=== PATIENT | female | born 1990 | race Caucasian/White ===

== ENCOUNTER 2024-07-12 09:18 | Observation (INO) | payer SELFPAY ==
[~2024-07-12] VITALS: Ht 172.7 cm; Wt 74.8 kg
--- NOTE | 2024-07-12 09:23 | NUR ---
PT TO ROOM WITH STEADY GAIT
[2024-07-12 09:26] VITALS: BP 123/92
[2024-07-12] MEDS ORDERED: ONDANSETRON HCl 4 MG/2 ML SDV IV ONE (09:30)
[2024-07-12] MEDS ORDERED: KETOROLAC TROMETHAMINE 15 MG/ML SDV IV ONE (09:30)
[2024-07-12] MEDS ORDERED: SODIUM CHLORIDE 0.9% 1,000 ML IV ONE (09:30)
[2024-07-12 09:45] LABS: URINE BILIRUBIN - DIPSTICK Negative (NEGATIVE); URINE BLOOD DIPSTICK Trace-intact (NEGATIVE); URINE GLUCOSE - DIPSTICK Negative (NEGATIVE); URINE KETONE Negative (NEGATIVE); URINE NITRITE - DIPSTICK Negative (Negative); URINE PH 5.5 (4.5-8.0); URINE PROTEIN - DIPSTICK Negative (NEG-TRACE); URINE SPECIFIC GRAVITY 1.025; URINE UROBILINOGEN - DIPSTICK 0.2 E.U./dL (0.2)
[2024-07-12 09:52] LABS: BASO% 0.5 % (0-3); EOS% 2.8 % (0-8); HEMATOCRIT 36.8 % (37.0-47.0); HEMOGLOBIN 11.6 g/dl (12.0-16.0); IMMATURE GRANULOCYTES 0.4 % (0.0-5.0); LYMPH% 46.6 % (15-41); MEAN CELL VOLUME 91.8 fL CALC (80.0-100.0); MEAN CORPUSCULAR HGB 28.9 pG CALC (26.0-32.0); MEAN CORPUSCULAR HGB CONC 31.5 g/dL CAL (32.0-36.0); MONO% 8.9 % (2-13); NEUT# 3.05 thou/uL (2.00-7.15); NEUT% 40.8 % (42-76); RED BLOOD COUNT 4.01 mill/uL (4.20-5.60); RED CELL DISTRI WIDTH 13.4 % (11.5-15.5)
[2024-07-12 10:08] LABS: ALBUMIN 4.9 g/dL (3.2-5.0); BILIRUBIN, TOTAL 0.4 mg/dL (0.02-1.3); CREATININE 0.7 mg/dL (0.5-1.0); POTASSIUM 3.7 mmol/l (3.5-5.1); TOTAL PROTEIN 8.4 g/dL (6.3-8.2)
[2024-07-12 10:30] LABS: URINE COLOR Yellow; URINE LEUK ESTERASE Small (NEGATIVE)
--- NOTE | 2024-07-12 10:30 | NUR ---
PATIENT AWAKE, ALERT AND STABLE. NO DISRESS NOTED. PATIENT C/O PAIN IN ABDOMEN. WILL CONTINUE TO MONITOR.
[2024-07-12 10:35] LABS: URINE RBC 0-2 RBC/hpf (0-5)
[2024-07-12 10:36] LABS: URINE BACTERIA FEW hpf; URINE EPITHELIAL CELLS MANY EPI/hpf (0-FEW); URINE MUCUS MODERATE hpf (NONE-FEW)
[2024-07-12] MEDS ORDERED: HYDROmorphone HCL 2 MG/AMP IV ONE (10:45)
[2024-07-12] MEDS ORDERED: Pantoprazole Sodium 40 MG VIAL (Protonix) IV ONE ×2 (10:45→11:45)
--- NOTE | 2024-07-12 11:15 | NUR ---
PATIENT AWAKE, ALERT AND STABLE. NO DISTRESS NOTED. PATIENT IN BED ON PHONE AT THIS TIME. PATIENT HAS NO QUESTIONS OR CONCERNS. VITALS WNL. WILL CONTINUE TO MONITOR.
[2024-07-12] MEDS ORDERED: cefTRIAXone SODIUM 2 GM in SODIUM CHLORIDE 0.9% 100 ML IV ONE (11:50)
[2024-07-12] MEDS ORDERED: SODIUM CHLORIDE 0.9% 1,000 ML IV PRN (12:10)
[2024-07-12] MEDS ORDERED: ALPRAZolam 1 MG/TAB PO PRN (12:10)
[2024-07-12] MEDS ORDERED: HYDROmorphone HCL 2 MG/AMP IV PRN (12:10)
[2024-07-12] MEDS ORDERED: ONDANSETRON HCl 4 MG/2 ML SDV IV PRN (12:15)
[2024-07-12] MEDS ORDERED: DiphenhydrAMINE HCL 50 MG/ML SDV IV PRN (12:15)
[2024-07-12] MEDS ORDERED: SOTALOL AF80 MG PO (12:33)
[2024-07-12] MEDS ORDERED: XANAX1 MG PO (12:33)
--- NOTE | 2024-07-12 13:00 | NUR ---
PATIENT AWAKE, ALERT AND STABLE. NO DISTRESS NOTED. VITALS WNL. PATIENT AWARE THAT SHE IS BEING ADMITTED TO HOSPITAL. WILL CONTINUE TO MONITOR.
--- NOTE | 2024-07-12 13:58 | NUR ---
PATIENT ARRIVED TO [place] FROM THE ED TO ROOM 278. PATIENT A&OX3. BREATHING UNLABORED ON ROOM AIR. IV IN LAC INFUSING FLUIDS PER EMAR;SITE CLEAN AND INTACT. PT STATES TO HAVE SOME PAIN IN LEFT FLANK AREA;MEDICATION REVIEWED. ASSESSMENT COMPLETED. PT DENIES ANY N/D/V AT THIS TIME. PERSONAL BELONGINGS PUT AWAY. PT EDUCATED ON SAFTEY PRECAUTIONS AND CALL LIGHT USE;PT VERBALIZED UNDERSTANDING. BED IN LOWEST POSITION. CALL LIGHT WITHIN REACH. NO OTHER NEEDS AT THIS TIME. POC ONGOING .
--- NOTE | 2024-07-12 14:35 | NUR ---
Admission Note Report Given to: Transported by: X Wheelchair Stretcher Transported with: X Nurse Transporter X Patent IV O2 X Breaker Boss Location: ICU X [facility]
[2024-07-12 14:48] VITALS: BP 123/92
[2024-07-12] MEDS ORDERED: DiphenhydrAMINE HCL 25 MG CPLT PO PRN (16:30)
--- NOTE | 2024-07-12 16:40 | NUR ---
PATIENT LYING IN BED ON CELLPHONE. BREATHING UNLABORED ON ROOM AIR. TELE INTACT. IV IN LAC INFUSING FLUIDS PER EMAR; SITE CLEAN AND INTACT. PT STATES TO HAVE SOME VAGINAL ITCHING;MD NOTIFED AND AWARE WITH NEW ORDERD GIVEN.PT INFORMED OF CLEAR LIQUID DIET UNTIL MIDNIGHT AND THEN NPO AFTER. PT VERBALIZED UNDERSTANDING. NO OTHER NEEDS AT THIS TIME. BED IN LOWEST POSITION. CALL LIGHT WITHIN REACH. POC ONGOING.
--- NOTE | 2024-07-12 18:20 | NUR ---
INFORMED THAT PATIENT IS COMPLAINING ABOUT ITCHING IN VAGINAL AREA;A NEW ORDER WAS GIVEN. DURING ADMINISTRATION OF MEDICATION,PT REFUSED DUE TO IT BEING IN PO FORM AND NOT IV. PT STATED SHE WANTED SOMETHING FOR PAIN. INFORMED PT HER DILAUDID WAS DISCONTINUED;PT INSISTED ON KNOWING WHY AND STATED " IM NOT GOING TO STAY IF I DONT HAVE ANYTHING FOR PAIN, THAT WAS THE WHOLE POINT OF ME EVEN STAYING AND HE SAID HE WOULD GIVE ME SOMETHING FOR PAIN THROUGHTOUT THE NIGHT". NOTIFIED AND AWARE AND STATED NO NEW PAIN MED ORDERS WILL BE GIVEN AND THE PATIENT CAN LEAVE AMA IF SHE CHOOSES. PT DECIDED TO LEAVE AMA AND REMOVED IV HERSELF WELL TELE. PT REQUESTED 6 APPLE JUICES BEFORE SHE LEAVES; APPE JUICE PROVIDED. PT THEN LEFT.
[2024-07-12] MEDS ORDERED: SOTALOL HCL 80 MG TAB PO SCH (21:00)
[2024-07-13] MEDS ORDERED: PROTONIX40 M2 PO (16:58)
[2024-07-13] MEDS ORDERED: ZOFRAN4 MG/TAB PO (16:58)
== END 2024-07-12 18:24 | disposition left against medical advice (07) | DRG 378 ==
LOC: ED 09:18 → ED-I 11:35 → ED 12:07 → MS2 12:08
PROVIDERS: Family Medicine; ADMIT Surgery; ATTEND Surgery
DX: K92.0 Hematemesis (principal); N39.0 Urinary tract infection, site not specified; I10 Essential (primary) hypertension; N20.0 Calculus of kidney; F41.9 Anxiety disorder, unspecified; Z87.442 Personal history of urinary calculi; Z80.0 Family history of malignant neoplasm of digestive organs; Z87.11 Personal history of peptic ulcer disease
CPT/HCPCS: G0378; J1171; J1200; J2405; J2470

== ENCOUNTER 2024-07-13 15:01 | Emergency (ER) | payer SELFPAY ==
[~2024-07-13] VITALS: Ht 172.7 cm; Wt 81.6 kg
[~2024-07-13 15:01] MED LIST: SOTALOL AF80 MG PO; XANAX1 MG PO
[2024-07-13 15:12] VITALS: BP 119/71
[2024-07-13] MEDS ORDERED: HYDROmorphone HCL 2 MG/AMP IV STA (15:27)
[2024-07-13] MEDS ORDERED: PROMETHAZINE HCL 25 MG/ML AMP IM STA (15:27)
[2024-07-13 15:32] VITALS: BP 128/95
[2024-07-13] MEDS ORDERED: Pantoprazole Sodium 40 MG VIAL (Protonix) IV ONE (15:35)
[2024-07-13 15:51] LABS: BASO% 0.4 % (0-3); EOS% 2.7 % (0-8); HEMATOCRIT 36.8 % (37.0-47.0); HEMOGLOBIN 11.7 g/dl (12.0-16.0); IMMATURE GRANULOCYTES 0.1 % (0.0-5.0); LYMPH% 46.9 % (15-41); MEAN CELL VOLUME 90.6 fL CALC (80.0-100.0); MEAN CORPUSCULAR HGB 28.8 pG CALC (26.0-32.0); MEAN CORPUSCULAR HGB CONC 31.8 g/dL CAL (32.0-36.0); MONO% 7.6 % (2-13); NEUT# 3.25 thou/uL (2.00-7.15); NEUT% 42.3 % (42-76); RED BLOOD COUNT 4.06 mill/uL (4.20-5.60); RED CELL DISTRI WIDTH 13.2 % (11.5-15.5)
[2024-07-13 16:00] VITALS: BP 123/82
[2024-07-13 16:03] LABS: ALBUMIN 4.6 g/dL (3.2-5.0); BILIRUBIN, TOTAL 0.4 mg/dL (0.02-1.3); CREATININE 0.7 mg/dL (0.5-1.0); POTASSIUM 4.2 mmol/l (3.5-5.1); TOTAL PROTEIN 7.8 g/dL (6.3-8.2)
[2024-07-13] MEDS ORDERED: ONDANSETRON HCl 4 MG/2 ML SDV IV ONE (16:05)
[2024-07-13 16:31] VITALS: BP 113/66
[2024-07-13] MEDS ORDERED: ACETAMINOPHEN 325 MG/TAB PO ONE (16:45)
[2024-07-13] MEDS ORDERED: ZOFRAN4 MG/TAB PO (16:58)
[2024-07-13] MEDS ORDERED: PROTONIX40 M2 PO (16:58)
[2024-07-13 17:04] VITALS: BP 113/66
== END 2024-07-13 17:10 | disposition home or self-care (01) | DRG 379 ==
LOC: ED 15:01
PROVIDERS: Nurse Practitioner Family
DX: K92.0 Hematemesis (principal); N20.0 Calculus of kidney; F41.9 Anxiety disorder, unspecified; I10 Essential (primary) hypertension; Z87.11 Personal history of peptic ulcer disease; Z87.442 Personal history of urinary calculi
CPT/HCPCS: J1171; J2405; J2470